=== PATIENT | female | born 1950 | race Hispanic/Latino ===

== ENCOUNTER 2019-03-10 11:01 | Outpatient (CLI) | payer MEDICARE, OTHER ==
--- NOTE | 2019-03-10 11:34 | XRay Report ---
CHEST 2 VIEWS INDICATION / CLINICAL INFORMATION: COUGH. COMPARISON: None available. FINDINGS: SUPPORT DEVICES: None. HEART / MEDIASTINUM: Normal heart size. 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 LUNGS / PLEURA: No significant pulmonary or pleural abnormality. No pneumothorax. ADDITIONAL FINDINGS: No significant additional findings. IMPRESSION: 1. No acute findings. Signer Name: Benjamin Max MD Signed: 03/10/2019 11:30 AM Workstation Name: [id number]
== END 2019-03-10 11:02 | disposition home or self-care (01) ==
LOC: SPVIMAG 11:01
PROVIDERS: ATTEND Internal Medicine Hematology & Oncology
DX: I70.0 Atherosclerosis of aorta (principal); C50.811 Malignant neoplasm of overlapping sites of right female breast; R05 Cough
CPT/HCPCS: 71046